=== PATIENT | male | born 2005 | race Caucasian/White ===

== ENCOUNTER 2023-03-19 22:13 | Emergency (ER) | payer BC, SELFPAY ==
[2023-03-19 22:36] VITALS: BP 148/88; RESP 20; TEMP 37.6; O2SAT 98
--- NOTE | 2023-03-19 23:12 | CRLHL7_ITS ---
For Patients: As a result of the Cures Act, medical imaging exams and procedure reports are released immediately into your electronic medical record. You may view this report before your referring provider. If you have questions, please contact your health care provider. INDICATION: Cough and fever.. TECHNIQUE: Chest 1 views. COMPARISON: None. FINDINGS: Cardiovascular and mediastinum: Cardiomediastinal silhouette is within normal limits. Lungs and pleural spaces: Lungs are clear. No sign of pleural effusion. No pneumothorax. Bones and soft tissues: No significant findings. IMPRESSION: No acute cardiopulmonary process identified. Dictated by Divina Harmon MD @ 03/20/2023 12:10:28 AM (Electronically Signed)
[2023-03-19 23:13] VITALS: O2SAT 98
[2023-03-19 23:35] VITALS: BP 129/73; PULSE 100; RESP 20; O2SAT 98
[2023-03-19 23:41] VITALS: PULSE 100; O2SAT 98
[2023-03-20] VITALS: PULSE 102; O2SAT 97
[2023-03-20 00:05] VITALS: PULSE 94; O2SAT 98
[2023-03-20 00:30] VITALS: PULSE 99; O2SAT 97
[2023-03-20 00:32] LABS: Troponin I* < 0.01 ng/mL (0.01-0.04)
[2023-03-20 00:34] VITALS: PULSE 99; O2SAT 98
--- NOTE | 2023-03-20 01:22 | ED_ITS ---
HPI - General Adult General Chief complaint: Fever Stated complaint: Covid+, chest pain Time Seen by Provider: 03/19/23 22:58 History of Present Illness HPI narrative: pt took home test yesterday, covid positive . Pt complaining of Fever, chest pain, short of breath. Took Ibuprofen this morning, 9am. 17-year-old young man presenting to the emergency department with concern of increasing shortness of breath chest pain. Elevated temperature. Has taken some ibuprofen. Yesterday tested home COVID positive. No sense of irregular heartbeats but faster. No vomiting. No diarrhea. No noted rashes. Is experiencing pharyngitis. Related Data Home Medications Medication Instructions Recorded Confirmed No Known Home Medications 11/28/22 11/28/22 Allergies Allergy/AdvReac Type Severity Reaction Status Date / Time No Known Drug Allergies Allergy Verified 11/28/22 15:06 Review of Systems Status of ROS: Reports: 6 or more systems reviewed and unremarkable except as noted in History and below PFSH [facility] Social History Smoking Status: Never smoker How often do you have a drink containing alcohol: never AUDIT-C Alcohol total score: 0 Non-prescribed substance use: denies use Exam Narrative: Exam Narrative: NAD. Good energy. Breathing easily. Oropharynx unremarkable maybe a little red in the posterior pharynx. Skin is warm. No rash. Well-perfused peripherally without edema. Neck is supple without lymphadenopathy. Lungs appear to be clear with breath sounds throughout. There is no supraclavicular crepitus. Trachea midline Heart in elevated rate and normal rhythm. Abdomen is flat soft. Const: Vital Signs, click to edit/add: Vital Signs - 24 hr 03/19/23 22:36 03/19/23 23:13 03/19/23 23:35 Temperature 99.7 F H Pulse Rate Pulse Rate [Left P ulse Oximeter] 100 Respiratory Rate 20 20 Blood Pressure [Ri ght Upper Arm] 148/88 H 129/73 Pulse Oximetry 98 98 98 Oxygen Delivery Me thod Room Air Room Air 03/19/23 23:41 03/20/23 00:00 03/20/23 00:05 Temperature Pulse Rate 100 102 H 94 Pulse Rate [Left P ulse Oximeter] Respiratory Rate Blood Pressure [Ri ght Upper Arm] Pulse Oximetry 98 97 98 Oxygen Delivery Me thod 03/20/23 00:30 03/20/23 00:34 Temperature Pulse Rate 99 99 Pulse Rate [Left P ulse Oximeter] Respiratory Rate Blood Pressure [Ri ght Upper Arm] Pulse Oximetry 97 98 Oxygen Delivery Hi thod Documenting provider has reviewed patient's vital signs: yes Course Vital Signs Vital signs: Initial Vital Signs Temperature 99.7 F H 03/19/23 22:36 Temperature Source Temporal Artery Scan 03/19/23 22:36 Respiratory Rate 20 03/19/23 22:36 Blood Pressure 148/88 H 03/19/23 22:36 Blood Pressure Mean 108 H 03/19/23 22:36 Blood Pressure Position Semi-Fowlers 03/19/23 22:36 Pulse Oximetry 98 03/19/23 22:36 Oxygen Delivery Method Room Air 03/19/23 22:36 Vital Signs Temperature 99.7 F H 03/19/23 22:36 Respiratory Rate 20 03/19/23 22:36 Blood Pressure 148/88 H 03/19/23 22:36 Pulse Oximetry 98 03/19/23 22:36 Oxygen Delivery Method Room Air 03/19/23 22:36 Temperature 99.7 F H 03/19/23 22:36 Pulse Rate 99 03/20/23 00:34 Respiratory Rate 20 03/19/23 23:35 Blood Pressure 129/73 03/19/23 23:35 Pulse Oximetry 98 03/20/23 00:34 Oxygen Delivery Method Room Air 03/19/23 23:35 Medical Decision Making MDM Narrative Medical decision making narrative: Given COVID positive I do not think there is any surprise in current complaints. There is some pleuritic nature to his chest discomfort. I suppose could be a pneumonia though rather too early likely to be secondary to COVID. Pneumothorax possibility as well. Doubtful ischemic cardiovascular disease. Arrhythmia possible. D-dimer probably not particularly helpful. Monitored on oximetry. Stable. Chest x-ray reviewed by me is unremarkable. No risk factors to warrant Paxlovid See patient discharge plan Lab Data Lab results reviewed: Yes I reviewed the patient's lab results Labs: Lab Results 03/19/23 Range/Units 22:50 Troponin I < 0.01 L (0.01-0.04) ng/mL ECG Data Attestation: I personally reviewed and interpreted this ECG as follows: (Sinus tachycardia rate of 105. No acute ischemic changes.) Discharge Plan Discharge Clinical Impression: COVID-19 Patient Disposition: Home w/ Parent or Adult Condition: Stable Additional Instructions: Stay well hydrated. Consider electrolyte drinks like Powerade or Gatorade. Comes in a powder you can reconstitute. Might try anesthetic throat lozenges or sprays like Sucrets or Chloraseptic. Can take up to 800 mg of ibuprofen or up to 1000 mg of acetaminophen per dose. Instead of the ibuprofen you might try up to 500 mg naproxen 2 times daily. If you are increasingly short of breath, consider getting an oximeter and return for oxygen saturations of 90% or less. Prescriptions: No Action No Known Home Medications Follow Up/Referrals: Provider,Not a Local [Primary Care Provider] - Stand Alone Forms: [employer] Info Instructions
== END 2023-03-20 01:07 | disposition home or self-care (01) ==
PROVIDERS: Emergency Provider Family Medicine
DX: U07.1 COVID-19 (principal)
CPT/HCPCS: 36415; 71045; 84484; 93005; 94761; 99283; 99284